=== PATIENT | male | born 1955 | race Caucasian/White ===

== ENCOUNTER 2020-03-22 13:40 | Outpatient (REF) | payer SELFPAY | END 2020-03-22 13:41 | disposition home or self-care (01) | LOC: HO.BBR 13:40 | PROVIDERS: Visit Provider Internal Medicine | DX: Z13.89 Encounter for screening for other disorder (principal) ==

== ENCOUNTER 2020-06-21 09:45 | Outpatient (REF) | payer OTHER, SELFPAY | END 2020-06-21 09:46 | disposition home or self-care (01) | LOC: HO.BBR 09:45 | PROVIDERS: PCP Internal Medicine; Visit Provider Internal Medicine | DX: Z13.89 Encounter for screening for other disorder (principal) ==

== ENCOUNTER 2020-09-20 09:38 | Outpatient (REF) | payer OTHER, SELFPAY | END 2020-09-20 09:39 | disposition home or self-care (01) | LOC: HO.BBR 09:38 | PROVIDERS: Visit Provider Internal Medicine | DX: Z13.89 Encounter for screening for other disorder (principal) ==

== ENCOUNTER 2020-11-21 09:44 | Outpatient (REF) | payer OTHER, SELFPAY | END 2020-11-21 09:45 | disposition home or self-care (01) | LOC: HO.BBR 09:44 | PROVIDERS: Visit Provider Internal Medicine | DX: Z13.89 Encounter for screening for other disorder (principal) ==

== ENCOUNTER 2021-01-23 09:50 | Outpatient (REF) | payer OTHER, SELFPAY | END 2021-01-23 09:51 | disposition home or self-care (01) | LOC: HO.BBR 09:50 | PROVIDERS: PCP Internal Medicine; Visit Provider Internal Medicine | DX: Z13.89 Encounter for screening for other disorder (principal) ==

== ENCOUNTER 2021-03-26 09:47 | Outpatient (REF) | payer OTHER, SELFPAY | END 2021-03-26 09:48 | disposition home or self-care (01) | LOC: HO.BBR 09:47 | PROVIDERS: Visit Provider Internal Medicine | DX: Z13.89 Encounter for screening for other disorder (principal) ==